=== PATIENT | male | born 1980 | race Caucasian/White ===

== ENCOUNTER 2024-08-06 12:55 | Emergency (ER) | payer MEDICAID ==
[~2024-08-06] VITALS: Ht 175.3 cm; Wt 115.2 kg
[2024-08-06 13:11] VITALS: BP_SYST 187; PULSE 101; RESP 18; TEMP 98.8; O2SAT 98
[2024-08-06 15:02] VITALS: BP_SYST 187; PULSE 101; RESP 18; TEMP 98.8; O2SAT 98
== END 2024-08-06 15:02 | disposition home or self-care (01) ==
LOC: SED 12:55
DX: S80.12XA Contusion of left lower leg, initial encounter (principal); I10 Essential (primary) hypertension; F10.20 Alcohol dependence, uncomplicated; W19.XXXA Unspecified fall, initial encounter; Y93.89 Activity, other specified; Y92.89 Other specified places as the place of occurrence of the external cause; Y99.8 Other external cause status
CPT/HCPCS: 73590; 93971; 99284